=== PATIENT | male | born 1975 | race Caucasian/White ===

== ENCOUNTER 2021-10-23 23:39 | Emergency (ER) | payer OTHER ==
[2021-10-24 00:14] LABS: HEMOGLOBIN 14.2 gm/dl (14.0-17.5); RED BLOOD COUNT 4.61 M/UL (4.20-5.50); WHITE BLOOD COUNT 7.9 K/UL (4.5-11.0)
[2021-10-24 00:44] LABS: BUN/CREATININE RATIO 9 (0-10)
[2021-10-24] MEDS ORDERED: BAYER CHEWABLE81 MG PO (03:56)
== END 2021-10-24 04:05 | disposition home or self-care (01) ==
LOC: ER1 23:39
PROVIDERS: Physician Assistant
DX: R07.89 Other chest pain (principal); E78.5 Hyperlipidemia, unspecified; K21.9 Gastro-esophageal reflux disease without esophagitis
CPT/HCPCS: 71045; 80053; 80307; 81001; 82550; 82553; 83880; 84484; 85025; 85610; 85730; 87086; 93005; 99285